=== PATIENT | female | born 1990 | race Hispanic/Latino ===

== ENCOUNTER 2017-05-25 19:40 | Emergency (ER) | payer SELFPAY ==
[2017-05-25] MEDS ORDERED: ONDANSETRON 4 MG TABLET ONE (20:03)
[2017-05-25] MEDS ORDERED: PENICILLIN V POTASSIUM 500 MG TABLET ONE (20:03)
[2017-05-25] MEDS ORDERED: MORPHINE SULFATE 4 MG/1ML SYG ONE (20:04)
== END 2017-05-25 20:46 | disposition home or self-care (01) ==
LOC: EDH 19:40
DX: K08.89 Other specified disorders of teeth and supporting structures (principal); Z90.49 Acquired absence of other specified parts of digestive tract
CPT/HCPCS: 96372; 99283; J2270; Q0162

== ENCOUNTER 2017-05-27 00:23 | Emergency (ER) | payer SELFPAY | END 2017-05-27 01:03 | disposition home or self-care (01) | LOC: EDH 00:23 | DX: K08.89 Other specified disorders of teeth and supporting structures (principal); F41.9 Anxiety disorder, unspecified; Z90.49 Acquired absence of other specified parts of digestive tract | CPT/HCPCS: 99281 ==